=== PATIENT | female | born 1975 | race Two or more races ===

== ENCOUNTER 2021-08-23 03:35 | Emergency (ER) | payer OTHER ==
[~2021-08-23] VITALS: Ht 157.5 cm; Wt 61.2 kg
[2021-08-23] MEDS ORDERED: ZOFRAN8 MG (03:44)
[2021-08-23] MEDS ORDERED: HYDROCHLOROTHIA25 MG (03:44)
[2021-08-23] MEDS ORDERED: CARVEDILOL ER40 MG (03:44)
[2021-08-23] MEDS ORDERED: PEPCID AC20 MG (03:45)
[2021-08-23] MEDS ORDERED: DICY20TA (03:45)
[2021-08-23] MEDS ORDERED: PROTONIX20 MG PO (06:20)
[2021-08-23] MEDS ORDERED: PEPCID20 MG PO (06:20)
[2021-08-23] MEDS ORDERED: CARAFATE1 GM PO (06:20)
== END 2021-08-23 06:30 | disposition home or self-care (01) ==
LOC: ER 03:35
DX: K29.60 Other gastritis without bleeding (principal)

== ENCOUNTER 2022-11-03 02:45 | Emergency (ER) | payer OTHER ==
[~2022-11-03] VITALS: Ht 162.6 cm; Wt 75.7 kg
[~2022-11-03 02:45] MED LIST: CARAFATE1 GM PO; CARVEDILOL ER40 MG; DICY20TA; HYDROCHLOROTHIA25 MG; PEPCID AC20 MG; PEPCID20 MG PO; PROTONIX20 MG PO; ZOFRAN8 MG
[2022-11-03] MEDS ORDERED: PROTONIX40 MG PO (07:59)
[2022-11-03] MEDS ORDERED: LEVSIN/SL0.125 MG SL (07:59)
[2022-11-03] MEDS ORDERED: PEPCID40 MG PO (07:59)
[2022-11-03] MEDS ORDERED: ZOFRAN8 MG PO (07:59)
== END 2022-11-03 08:15 ==
LOC: ER 02:45
DX: K29.70 Gastritis, unspecified, without bleeding (principal); R10.11 Right upper quadrant pain; I10 Essential (primary) hypertension

== ENCOUNTER → 2023-03-14 | Emergency (ER) | payer OTHER ==
[~2023-03-14] VITALS: Ht 154.9 cm; Wt 63.5 kg
[~2023-03-14] MED LIST changes: +LEVSIN/SL0.125 MG SL; +PEPCID40 MG PO; +PROTONIX40 MG PO; +ZOFRAN8 MG PO
== END | disposition left against medical advice (07) ==
LOC: ER 03:40
DX: Z53.21 Procedure and treatment not carried out due to patient leaving prior to being seen by health care provider (principal)

== ENCOUNTER 2023-05-29 03:44 | Emergency (ER) | payer OTHER ==
[~2023-05-29] VITALS: Ht 157.5 cm; Wt 64.9 kg
== END 2023-05-29 05:35 | disposition home or self-care (01) ==
LOC: ER 03:44
DX: K29.70 Gastritis, unspecified, without bleeding (principal)

== ENCOUNTER → 2023-10-25 | Emergency (ER) | payer OTHER ==
[~2023-10-25] VITALS: Ht 157.5 cm; Wt 64.9 kg
== END | disposition left against medical advice (07) ==
LOC: ER 23:02
DX: Z53.21 Procedure and treatment not carried out due to patient leaving prior to being seen by health care provider (principal)